=== PATIENT | female | born 1975 | race Caucasian/White ===

== ENCOUNTER 2016-12-01 05:47 | Inpatient (IN) | payer OTHER ==
[~2016-12-01] VITALS: Ht 170.2 cm; Wt 105.3 kg
[2016-12-01] VITALS (9 sets, daily range): BP systolic 119–133; BP diastolic 66–91
[~2016-12-01 05:47] MED LIST: CEPH500 PO; CeFAZolin 1 GM/DEXTROSE 50 ML IV ONE; HYDR2 PO; LORazepam 2 MG/ML VIAL IVP PRN; PROM25 PO; RIVA15T PO; SODIUM CHLORIDE 0.9% 1,000 ML IV ONE; THYR32.4 PO
[2016-12-01 07:14] LABS: ANION GAP 8 mmol/L (8-16); CALCIUM, TOTAL 7.5 mg/dL (8.8-10.5); CARBON DIOXIDE 25 mmol/L (22-29); CHLORIDE 114 mmol/L (98-107); CREATININE 0.53 mg/dL (0.60-1.30); GLOMERULAR FILTR. RATE CALC > 60 mL/min (>60); POTASSIUM 3.9 mmol/L (3.5-5.1); SODIUM SERUM 147 mmol/L (136-145); UREA NITROGEN, BLOOD 10 mg/dL (7-18)
[2016-12-01 07:16] LABS: INR 1.3 (0.9-1.1); PROTHROMBIN TIME 13.7 SEC (9.4-11.6)
[2016-12-01 07:19] LABS: ALANINE AMINOTRANSFERASE 30 U/L (12-78); ALBUMIN 1.9 g/dL (3.4-5.0); ASPARTATE AMINOTRANSFERASE 26 U/L (15-37); BILIRUBIN,TOTAL 0.8 mg/dL (0.1-1.0); TOTAL PROTEIN, SERUM 5.1 g/dL (6.4-8.2)
[2016-12-01 07:20] LABS: HEMATOCRIT 28.4 % (36-46); HEMOGLOBIN 9.4 g/dL (12.0-16.0); MEAN CORPUSCULAR HGB CONC 33.1 G/dL (31.0-37.0); MEAN CORPUSCULAR VOLUME 88 fL (80-100); PLATELET COUNT (AUTO) 436 K/uL (150-450); RED BLOOD CELL COUNT(AUTO) 3.24 MIL/uL (4.00-5.20); RED CELL DISTRIBUTION WIDTH 15.8 % (11.5-14.5); WHITE BLOOD COUNT (AUTO) 11.1 K/uL (4.5-11.0)
[2016-12-01] MEDS ORDERED: LORazepam 2 MG/ML VIAL ONE ×2 (07:26→09:58)
[2016-12-01 07:42] LABS: BASOPHILS % (MANUAL) 1 % (0-2); LYMPHOCYTES % (MANUAL) 11 % (22-44); TOTAL CELLS COUNTED 100
[2016-12-01 07:43] LABS: RBC MORPHOLOGY COMMENT ABNORMAL R
[2016-12-01] MEDS ORDERED: MAGNESIUM SULFATE 2 GM, MVI, ADULT NO.1 WITH VIT K 10 ML, THIAMINE HCL 100 MG, FOLIC AC... IV ONE ×5 (09:15)
[2016-12-01] MEDS ORDERED: ONDANSETRON HCL 4 MG/2 ML VIAL IVP PRN (09:30)
[2016-12-01] MEDS ORDERED: OxyCODONE HCL/ACETAMINOPHEN 5-325 MG TABLET PO PRN ×2 (09:30)
[2016-12-01] MEDS ORDERED: HYDROmorphone 2 MG/ML SYRINGE IVP PRN (09:30)
[2016-12-01] MEDS ORDERED: ZOLPIDEM TARTRATE 5 MG TABLET PO PRN ×2 (09:30→15:15)
[2016-12-01] MEDS ORDERED: 0.9% SODIUM CHLORIDE 10 ML SYRINGE IVP PRN (09:30)
[2016-12-01] MEDS: LORazepam 2 MG/ML VIAL IVP PRN ×2 (10:03→11:20)
[2016-12-01] MEDS ORDERED: HEPARIN SODIUM IV ONE ×2 (10:15→10:45)
[2016-12-01] MEDS ORDERED: SODIUM CHLORIDE 0.9% IV ONE ×2 (10:15→10:45)
[2016-12-01] MEDS ORDERED: KETAMINE HCL 50 MG/ML 10 ML VIAL ONE (11:07)
[2016-12-01] MEDS ORDERED: MIDAZOLAM HCL 2 MG/2 ML VIAL IVP ONE (12:00)
[2016-12-01] MEDS ORDERED: KETAMINE HCL 50 MG/ML 10 ML VIAL IVP ONE (12:00)
[2016-12-01] MEDS ORDERED: FentaNYL CITRATE-PF 100 MCG/2 ML VIAL IVP ONE (12:00)
[2016-12-01] MEDS ORDERED: RINGERS SOLUTION,LACTATED 500 ML IV ONE (12:20)
[2016-12-01] MEDS ORDERED: LIDOCAINE HCL/PF 1% 30 ML VIAL ONE ×2 (12:28→12:49)
[2016-12-01] MEDS ORDERED: IODIXANOL 320 MG/ML 100 ML VIAL ONE ×2 (12:29→13:19)
[2016-12-01] MEDS ORDERED: HEPARIN SODIUM 1000 UNITS/NS 0 ML ONE (12:29)
[2016-12-01] MEDS ORDERED: ALTEPLASE 2 MG/VIAL IVCATH ONE (12:36)
[2016-12-01] MEDS ORDERED: ALTEPLASE 2 MG/VIAL IVCATH PRN (12:45)
[2016-12-01] MEDS ORDERED: HEPARIN SODIUM 1000 UNITS/NS 500 ML ONE (12:47)
[2016-12-01] MEDS ORDERED: ALTEPLASE 8 MG in SODIUM CHLORIDE 0.9% 250 ML IV SCH ×3 (13:00→16:54)
[2016-12-01] MEDS ORDERED: HEPARIN SODIUM 25000 UNITS/D5W 250 ML IV ONE ×2 (13:27→13:56)
[2016-12-01] MEDS ORDERED: RINGERS SOLUTION,LACTATED 1,000 ML IV ONE (13:31)
[2016-12-01] MEDS: HEPARIN SODIUM 25000 UNITS/D5W 250 ML IV SCH (13:40)
[2016-12-01] MEDS ORDERED: ALTEPLASE IV SCH (14:15)
[2016-12-01] MEDS ORDERED: SODIUM CHLORIDE 0.9% IV SCH ×2 (14:15→16:00)
[2016-12-01] MEDS ORDERED: MAGNESIUM HYDROXIDE SUSPENSION 30 ML UDCUP PO PRN (15:15)
[2016-12-01] MEDS ORDERED: IPRATROPIUM BROMIDE HFA 17 MCG/PUFF 12.9 GM INHALER IH PRN (15:15)
[2016-12-01] MEDS ORDERED: LEVALBUTEROL HCL 0.63 MG/3 ML NEB SOLUTION NEB PRN (15:15)
[2016-12-01] MEDS ORDERED: ACETAMINOPHEN 325 MG TABLET PO PRN (15:15)
[2016-12-01] MEDS ORDERED: HEPARIN SODIUM 25000 UNITS/D5W 250 ML IV SCH (15:45)
[2016-12-01] MEDS ORDERED: 0.9% SODIUM CHLORIDE 10 ML SYRINGE IVP SCH ×2 (16:00→20:00)
[2016-12-01] MEDS ORDERED: HEPARIN SODIUM,PORCINE 5,000 UNITS/ML VIAL SQ SCH (16:00)
[2016-12-01] MEDS ORDERED: HEPARIN SODIUM IV SCH (16:00)
[2016-12-01] MEDS: MORPHINE SULFATE 2 MG/ML SYRINGE IVP PRN ×2 (16:22→22:40)
[2016-12-01] MEDS: SODIUM CHLORIDE 0.9% IV SCH ×2 (17:07→21:45)
[2016-12-01] MEDS: HEPARIN SODIUM IV SCH (17:07)
[2016-12-01] MEDS: MAGNESIUM SULFATE 2 GM, MVI, ADULT NO.1 WITH VIT K 10 ML, THIAMINE HCL 100 MG, FOLIC AC... IV SCH ×10 (18:45→23:39)
[2016-12-01] MEDS: ALTEPLASE 8 MG in SODIUM CHLORIDE 0.9% 250 ML IV SCH (18:54)
[2016-12-01] MEDS: DOCUSATE SODIUM 100 MG CAPSULE PO SCH (20:13)
[2016-12-01] MEDS ORDERED: DOCUSATE SODIUM 100 MG CAPSULE PO SCH (21:00)
[2016-12-01] MEDS: ALTEPLASE IV SCH (21:45)
[2016-12-02] VITALS (15 sets, daily range): BP systolic 111–139; BP diastolic 60–88
[2016-12-02] MEDS: ALTEPLASE 8 MG in SODIUM CHLORIDE 0.9% 250 ML IV SCH ×4 (00:47→20:54)
[2016-12-02] MEDS: MORPHINE SULFATE 2 MG/ML SYRINGE IVP PRN ×4 (02:55→19:03)
[2016-12-02] MEDS: MAGNESIUM SULFATE 2 GM, MVI, ADULT NO.1 WITH VIT K 10 ML, THIAMINE HCL 100 MG, FOLIC AC... IV SCH ×10 (04:27→10:03)
[2016-12-02 06:02] LABS: BASOPHILS % (AUTO) 0.4 % (0.0-2.0); EOSINOPHILS % (AUTO) 0.1 % (1.0-6.0); HEMATOCRIT 24.2 % (36-46); HEMOGLOBIN 7.6 g/dL (12.0-16.0); LYMPHOCYTES # (AUTO) 0.9 K/uL (1.0-4.8); LYMPHOCYTES % (AUTO) 9.9 % (22.0-44.0); MEAN CORPUSCULAR HEMOGLOBIN 27.9 pg (26.0-34.0); MEAN CORPUSCULAR HGB CONC 31.4 G/dL (31.0-37.0); MEAN CORPUSCULAR VOLUME 89 fL (80-100); MONOCYTES # (AUTO) 0.6 K/uL (0.1-1.0); MONOCYTES % (AUTO) 6.5 % (2.0-9.0); NEUTROPHILS # (AUTO) 7.6 K/uL (1.8-7.7); NEUTROPHILS % (AUTO) 83.1 % (40.0-70.0); PLATELET COUNT (AUTO) 308 K/uL (150-450); RED BLOOD CELL COUNT(AUTO) 2.72 MIL/uL (4.00-5.20); RED CELL DISTRIBUTION WIDTH 15.7 % (11.5-14.5); WHITE BLOOD COUNT (AUTO) 9.2 K/uL (4.5-11.0)
[2016-12-02] MEDS: SODIUM CHLORIDE 0.9% IV SCH ×3 (06:07→16:55)
[2016-12-02] MEDS: ALTEPLASE IV SCH ×2 (06:07→14:36)
[2016-12-02 06:25] LABS: ANION GAP 5 mmol/L (8-16); CALCIUM, TOTAL 7.1 mg/dL (8.8-10.5); CARBON DIOXIDE 27 mmol/L (22-29); CHLORIDE 119 mmol/L (98-107); CREATININE 0.53 mg/dL (0.60-1.30); GLOMERULAR FILTR. RATE CALC > 60 mL/min (>60); SODIUM SERUM 151 mmol/L (136-145); UREA NITROGEN, BLOOD 7 mg/dL (7-18)
[2016-12-02 08:42] LABS: RBC MORPHOLOGY COMMENT ABNORMAL RBC MORPH
[2016-12-02] MEDS: DOCUSATE SODIUM 100 MG CAPSULE PO SCH ×2 (08:49→20:53)
[2016-12-02] MEDS: PANTOPRAZOLE SODIUM 40 MG DR TABLET PO SCH (08:49)
[2016-12-02] MEDS: OxyCODONE HCL/ACETAMINOPHEN 5-325 MG TABLET PO PRN ×2 (10:45→20:52)
[2016-12-02] MEDS: DEXTROSE 5%-0.45% SODIUM CHL 1,000 ML IV SCH (14:30)
[2016-12-02] MEDS: HEPARIN SODIUM 25000 UNITS/D5W 250 ML IV SCH (14:31)
[2016-12-02] MEDS ORDERED: LIDOCAINE HCL/PF 1% 30 ML VIAL ONE ×2 (15:40→16:02)
[2016-12-02] MEDS ORDERED: IOHEXOL 300 MG/ML 100 ML VIAL ONE ×2 (15:40→17:07)
[2016-12-02] MEDS ORDERED: ALTEPLASE 2 MG/VIAL IVCATH STA (15:49)
[2016-12-02] MEDS ORDERED: SODIUM CHLORIDE 0.9% IV SCH (16:55)
[2016-12-02] MEDS ORDERED: HEPARIN SODIUM IV SCH (16:55)
[2016-12-02] MEDS: HEPARIN SODIUM IV SCH (16:55)
[2016-12-02] MEDS ORDERED: MIDAZOLAM HCL 2 MG/2 ML VIAL ONE (17:02)
[2016-12-02] MEDS ORDERED: FentaNYL CITRATE-PF 100 MCG/2 ML VIAL ONE (17:13)
[2016-12-02] MEDS ORDERED: HEPARIN SODIUM 1000 UNITS/NS 500 ML ONE (17:57)
[2016-12-02] MEDS ORDERED: FentaNYL CITRATE-PF 100 MCG/2 ML VIAL IVP ONE (18:00)
[2016-12-02] MEDS ORDERED: MIDAZOLAM HCL 2 MG/2 ML VIAL IVP ONE (18:00)
[2016-12-03] VITALS (12 sets, daily range): BP systolic 89–124; BP diastolic 61–82
[2016-12-03] MEDS: ALTEPLASE 8 MG in SODIUM CHLORIDE 0.9% 250 ML IV SCH ×2 (01:25→05:06)
[2016-12-03] MEDS: DEXTROSE 5%-0.45% SODIUM CHL 1,000 ML IV SCH (01:27)
[2016-12-03 05:44] LABS: HEMATOCRIT 23.3 % (36-46); HEMOGLOBIN 7.2 g/dL (12.0-16.0); MEAN CORPUSCULAR VOLUME 90 fL (80-100); PLATELET COUNT (AUTO) 217 K/uL (150-450); RED BLOOD CELL COUNT(AUTO) 2.58 MIL/uL (4.00-5.20); RED CELL DISTRIBUTION WIDTH 16.2 % (11.5-14.5); WHITE BLOOD COUNT (AUTO) 9.5 K/uL (4.5-11.0)
[2016-12-03 05:48] LABS: ANION GAP 7 mmol/L (8-16); CALCIUM, TOTAL 6.9 mg/dL (8.8-10.5); CARBON DIOXIDE 27 mmol/L (22-29); CHLORIDE 118 mmol/L (98-107); CREATININE 0.64 mg/dL (0.60-1.30); GLOMERULAR FILTR. RATE CALC > 60 mL/min (>60); POTASSIUM 4.8 mmol/L (3.5-5.1); SODIUM SERUM 152 mmol/L (136-145); UREA NITROGEN, BLOOD 10 mg/dL (7-18)
[2016-12-03] MEDS ORDERED: IOHEXOL 300 MG/ML 100 ML VIAL ONE ×2 (06:44→08:41)
[2016-12-03] MEDS ORDERED: LIDOCAINE HCL/PF 1% 30 ML VIAL ONE (06:44)
[2016-12-03] MEDS ORDERED: HEPARIN SODIUM 1000 UNITS/NS 500 ML ONE ×2 (06:44→08:40)
[2016-12-03] MEDS: MORPHINE SULFATE 2 MG/ML SYRINGE IVP PRN (07:31)
[2016-12-03 08:28] LABS: BAND NEUTROPHILS % (MANUAL) 1 % (1-5); LYMPHOCYTES % (MANUAL) 15 % (22-44); TOTAL CELLS COUNTED 100
[2016-12-03] MEDS ORDERED: LORazepam 2 MG/ML VIAL IVP ONE (08:45)
[2016-12-03] MEDS ORDERED: ALTEPLASE 2 MG/VIAL IVCATH ONE ×2 (09:00→10:00)
[2016-12-03] MEDS: PANTOPRAZOLE SODIUM 40 MG DR TABLET PO SCH (09:00)
[2016-12-03] MEDS: DOCUSATE SODIUM 100 MG CAPSULE PO SCH ×2 (09:00→20:37)
[2016-12-03] MEDS ORDERED: HEPARIN SODIUM,PORCINE 1,000 UNITS/ML 10 ML VIAL ONE (09:24)
[2016-12-03] MEDS ORDERED: ADENOSINE 3 MG/ML 2 ML VIAL IVP ONE (09:30)
[2016-12-03] MEDS ORDERED: IOVERSOL 350 MG/ML 150 ML VIAL ONE (11:04)
[2016-12-03] MEDS: APIXABAN 5 MG TABLET PO SCH ×2 (11:50→20:37)
[2016-12-03] MEDS: OxyCODONE HCL/ACETAMINOPHEN 5-325 MG TABLET PO PRN ×2 (11:50→20:37)
[2016-12-03] MEDS: RINGERS SOLUTION,LACTATED 1,000 ML IV SCH ×2 (11:51→16:03)
[2016-12-03] MEDS: SODIUM POLYSTYRENE SULFONATE 15 GM/60 ML SUSPENSION BOTTLE PO SCH ×2 (12:25→20:38)
[2016-12-03] MEDS: LORazepam 1 MG TABLET PO SCH ×3 (12:25→20:37)
[2016-12-03] MEDS ORDERED: SODIUM CHLORIDE 0.9% 250 ML IV ONE (15:39)
[2016-12-03 19:35] LABS: ANION GAP 6 mmol/L (8-16); CALCIUM, TOTAL 7.1 mg/dL (8.8-10.5); CARBON DIOXIDE 24 mmol/L (22-29); CHLORIDE 116 mmol/L (98-107); CREATININE 0.65 mg/dL (0.60-1.30); GLOMERULAR FILTR. RATE CALC > 60 mL/min (>60); POTASSIUM 4.2 mmol/L (3.5-5.1); SODIUM SERUM 146 mmol/L (136-145); UREA NITROGEN, BLOOD 9 mg/dL (7-18)
[2016-12-03] MEDS: SODIUM CHLORIDE 0.9% 1,000 ML IV SCH (20:38)
[2016-12-04] VITALS (12 sets, daily range): BP systolic 95–139; BP diastolic 56–79
[2016-12-04 05:11] LABS: ANION GAP 6 mmol/L (8-16); CALCIUM, TOTAL 6.9 mg/dL (8.8-10.5); CARBON DIOXIDE 25 mmol/L (22-29); CHLORIDE 115 mmol/L (98-107); CREATININE 0.67 mg/dL (0.60-1.30); GLOMERULAR FILTR. RATE CALC > 60 mL/min (>60); POTASSIUM 4.4 mmol/L (3.5-5.1); SODIUM SERUM 146 mmol/L (136-145); UREA NITROGEN, BLOOD 10 mg/dL (7-18)
[2016-12-04] MEDS: OxyCODONE HCL/ACETAMINOPHEN 5-325 MG TABLET PO PRN ×3 (05:16→20:30)
[2016-12-04] MEDS: SODIUM CHLORIDE 0.9% 1,000 ML IV SCH ×2 (05:16→15:40)
[2016-12-04 05:36] LABS: BASOPHILS % (AUTO) 0.3 % (0.0-2.0); EOSINOPHILS % (AUTO) 1.6 % (1.0-6.0); HEMOGLOBIN 8.5 g/dL (12.0-16.0); LYMPHOCYTES # (AUTO) 1.5 K/uL (1.0-4.8); LYMPHOCYTES % (AUTO) 13.2 % (22.0-44.0); MEAN CORPUSCULAR HEMOGLOBIN 29.7 pg (26.0-34.0); MEAN CORPUSCULAR HGB CONC 32.8 G/dL (31.0-37.0); MEAN CORPUSCULAR VOLUME 90 fL (80-100); MONOCYTES # (AUTO) 0.4 K/uL (0.1-1.0); MONOCYTES % (AUTO) 3.4 % (2.0-9.0); NEUTROPHILS # (AUTO) 9.5 K/uL (1.8-7.7); NEUTROPHILS % (AUTO) 81.5 % (40.0-70.0); RED BLOOD CELL COUNT(AUTO) 2.87 MIL/uL (4.00-5.20); RED CELL DISTRIBUTION WIDTH 16.4 % (11.5-14.5); WHITE BLOOD COUNT (AUTO) 11.7 K/uL (4.5-11.0)
[2016-12-04 07:18] LABS: PLATELET COUNT (AUTO) 168 K/uL (150-450)
[2016-12-04] MEDS: LORazepam 1 MG TABLET PO SCH ×4 (09:12→20:21)
[2016-12-04] MEDS: APIXABAN 5 MG TABLET PO SCH ×2 (09:12→20:21)
[2016-12-04] MEDS: PANTOPRAZOLE SODIUM 40 MG DR TABLET PO SCH (09:12)
[2016-12-04] MEDS: DOCUSATE SODIUM 100 MG CAPSULE PO SCH ×2 (09:13→20:21)
[2016-12-04] MEDS: SODIUM POLYSTYRENE SULFONATE 15 GM/60 ML SUSPENSION BOTTLE PO SCH (10:46)
[2016-12-04] MEDS ORDERED: LACTULOSE 20 GM/30 ML SOLUTION UDCUP PO PRN (11:30)
[2016-12-04 16:51] LABS: ANION GAP 6 mmol/L (8-16); CALCIUM, TOTAL 6.7 mg/dL (8.8-10.5); CARBON DIOXIDE 24 mmol/L (22-29); CHLORIDE 116 mmol/L (98-107); CREATININE 0.64 mg/dL (0.60-1.30); GLOMERULAR FILTR. RATE CALC > 60 mL/min (>60); POTASSIUM 4.3 mmol/L (3.5-5.1); SODIUM SERUM 146 mmol/L (136-145); UREA NITROGEN, BLOOD 12 mg/dL (7-18)
[2016-12-04] MEDS: CefTRIAXone 1 GM/DEXTROSE 50 ML IV SCH (16:56)
[2016-12-05] VITALS (13 sets, daily range): BP systolic 96–141; BP diastolic 63–97
[2016-12-05] MEDS: BISACODYL 10 MG RECTAL RECTAL SUPPOSITORY PR PRN (01:46)
[2016-12-05] MEDS: SODIUM CHLORIDE 0.9% 1,000 ML IV SCH ×2 (01:47→11:15)
[2016-12-05] MEDS: PANTOPRAZOLE SODIUM 40 MG DR TABLET PO SCH (09:15)
[2016-12-05] MEDS: DOCUSATE SODIUM 100 MG CAPSULE PO SCH ×2 (09:15→20:55)
[2016-12-05] MEDS: APIXABAN 5 MG TABLET PO SCH (09:15)
[2016-12-05] MEDS: LORazepam 1 MG TABLET PO SCH ×4 (09:15→20:55)
[2016-12-05] MEDS: OxyCODONE HCL/ACETAMINOPHEN 5-325 MG TABLET PO PRN ×2 (11:38→21:13)
[2016-12-05 11:55] LABS: HEMATOCRIT 22.4 % (36-46); HEMOGLOBIN 7.3 g/dL (12.0-16.0); MEAN CORPUSCULAR HEMOGLOBIN 29.4 pg (26.0-34.0); MEAN CORPUSCULAR HGB CONC 32.5 G/dL (31.0-37.0); MEAN CORPUSCULAR VOLUME 91 fL (80-100); PLATELET COUNT (AUTO) 214 K/uL (150-450); RED BLOOD CELL COUNT(AUTO) 2.47 MIL/uL (4.00-5.20); RED CELL DISTRIBUTION WIDTH 17.4 % (11.5-14.5)
[2016-12-05 12:35] LABS: ANION GAP 6 mmol/L (8-16); CALCIUM, TOTAL 7.2 mg/dL (8.8-10.5); CARBON DIOXIDE 24 mmol/L (22-29); CHLORIDE 114 mmol/L (98-107); CREATININE 0.67 mg/dL (0.60-1.30); GLOMERULAR FILTR. RATE CALC > 60 mL/min (>60); POTASSIUM 4.4 mmol/L (3.5-5.1); SODIUM SERUM 144 mmol/L (136-145); UREA NITROGEN, BLOOD 12 mg/dL (7-18)
[2016-12-05 12:40] LABS: BILIRUBIN,TOTAL 0.7 mg/dL (0.1-1.0)
[2016-12-05 12:41] LABS: ALANINE AMINOTRANSFERASE 14 U/L (12-78); ALBUMIN 1.6 g/dL (3.4-5.0); ASPARTATE AMINOTRANSFERASE 23 U/L (15-37); BILIRUBIN,TOTAL 0.7 mg/dL (0.1-1.0); TOTAL PROTEIN, SERUM 4.4 g/dL (6.4-8.2)
[2016-12-05 12:43] LABS: BILIRUBIN,DIRECT 0.2 mg/dL (0.00-0.20)
[2016-12-05 12:50] LABS: BAND NEUTROPHILS % (MANUAL) 5 % (1-5); CORRECTED WHITE BLOOD COUNT 15.6 K/uL (4.5-11.0); LYMPHOCYTES % (MANUAL) 16 % (22-44); METAMYELOCYTES % 2 % (0-0); TOTAL CELLS COUNTED 100; WHITE BLOOD COUNT (AUTO) 15.6 K/uL (4.5-11.0)
[2016-12-05 12:51] LABS: RBC MORPHOLOGY COMMENT ABNORMAL RBC MORPH
[2016-12-05] MEDS: CefTRIAXone 1 GM/DEXTROSE 50 ML IV SCH (15:40)
[2016-12-05] MEDS ORDERED: MINERAL OIL 30 ML UDCUP PO SCH (15:45)
[2016-12-05] MEDS ORDERED: MAGNESIUM SULFATE 2 GM, MVI, ADULT NO.1 WITH VIT K 10 ML, THIAMINE HCL 100 MG, FOLIC AC... IV ONE ×5 (15:45)
[2016-12-05] MEDS ORDERED: SODIUM CHLORIDE 0.9% 500 ML IV ONE (16:52)
[2016-12-05] MEDS ORDERED: HEPARIN SODIUM 25000 UNITS/D5W 250 ML IV PRN (17:43)
[2016-12-05] MEDS ORDERED: HEPARIN SODIUM,PORCINE 5,000 UNITS/ML VIAL IVP PRN ×4 (17:45→21:00)
[2016-12-05 18:49] LABS: HEMATOCRIT 26.2 % (36-46); HEMOGLOBIN 8.5 g/dL (12.0-16.0); MEAN CORPUSCULAR HEMOGLOBIN 29.6 pg (26.0-34.0); MEAN CORPUSCULAR HGB CONC 32.3 G/dL (31.0-37.0); MEAN CORPUSCULAR VOLUME 92 fL (80-100); RED BLOOD CELL COUNT(AUTO) 2.86 MIL/uL (4.00-5.20); RED CELL DISTRIBUTION WIDTH 17.1 % (11.5-14.5)
[2016-12-05 19:09] LABS: INR 1.3 (0.9-1.1)
[2016-12-05] MEDS: HEPARIN SODIUM 25000 UNITS/D5W 250 ML IV PRN (21:00)
[2016-12-05] MEDS ORDERED: APIXABAN 5 MG TABLET PO SCH (21:00)
[2016-12-05 21:22] LABS: PLATELET COUNT (AUTO) 243 K/uL (150-450)
[2016-12-05 21:25] LABS: BAND NEUTROPHILS % (MANUAL) 5 % (1-5); CORRECTED WHITE BLOOD COUNT 17.7 K/uL (4.5-11.0); LYMPHOCYTES % (MANUAL) 17 % (22-44); METAMYELOCYTES % 7 % (0-0); MYELOCYTES % 3 % (0-0); TOTAL CELLS COUNTED 100; WHITE BLOOD COUNT (AUTO) 17.7 K/uL (4.5-11.0)
[2016-12-05 21:26] LABS: RBC MORPHOLOGY COMMENT ABNORMAL R
[2016-12-06] VITALS (8 sets, daily range): BP systolic 96–156; BP diastolic 64–79
[2016-12-06 05:47] LABS: ANION GAP 4 mmol/L (8-16); CALCIUM, TOTAL 7.3 mg/dL (8.8-10.5); CARBON DIOXIDE 26 mmol/L (22-29); CHLORIDE 114 mmol/L (98-107); CREATININE 0.71 mg/dL (0.60-1.30); GLOMERULAR FILTR. RATE CALC > 60 mL/min (>60); POTASSIUM 4.4 mmol/L (3.5-5.1); SODIUM SERUM 144 mmol/L (136-145); UREA NITROGEN, BLOOD 13 mg/dL (7-18)
[2016-12-06 05:55] LABS: HEMATOCRIT 25.9 % (36-46); HEMOGLOBIN 8.5 g/dL (12.0-16.0); MEAN CORPUSCULAR HEMOGLOBIN 30.1 pg (26.0-34.0); MEAN CORPUSCULAR HGB CONC 32.7 G/dL (31.0-37.0); MEAN CORPUSCULAR VOLUME 92 fL (80-100); PLATELET COUNT (AUTO) 235 K/uL (150-450); RED BLOOD CELL COUNT(AUTO) 2.82 MIL/uL (4.00-5.20); RED CELL DISTRIBUTION WIDTH 16.2 % (11.5-14.5)
[2016-12-06 07:42] LABS: HEPATITIS Bs ANTIGEN SCREEN P Negative (Negative); HEPATITIS C AB SCREEN <0.1 s/co ratio (0.0-0.9)
[2016-12-06 07:59] LABS: CORRECTED WHITE BLOOD COUNT 21.4 K/uL (4.5-11.0); LYMPHOCYTES % (MANUAL) 11 % (22-44); METAMYELOCYTES % 11 % (0-0); MYELOCYTES % 12 % (0-0); PROMYELOCYTES % 2 (0-0); TOTAL CELLS COUNTED 100; WHITE BLOOD COUNT (AUTO) 21.4 K/uL (4.5-11.0)
[2016-12-06 08:01] LABS: RBC MORPHOLOGY COMMENT ABNORMAL R
[2016-12-06] MEDS: LORazepam 1 MG TABLET PO SCH ×4 (08:57→20:08)
[2016-12-06] MEDS: PANTOPRAZOLE SODIUM 40 MG DR TABLET PO SCH (08:58)
[2016-12-06] MEDS: DOCUSATE SODIUM 100 MG CAPSULE PO SCH ×2 (08:58→20:08)
[2016-12-06] MEDS: OxyCODONE HCL/ACETAMINOPHEN 5-325 MG TABLET PO PRN ×2 (10:30→18:38)
[2016-12-06] MEDS: HEPARIN SODIUM 25000 UNITS/D5W 250 ML IV PRN (10:34)
[2016-12-06] MEDS: CefTRIAXone 1 GM/DEXTROSE 50 ML IV SCH (16:00)
[2016-12-06] MEDS ORDERED: SODIUM CHLORIDE 0.9% 250 ML IV ONE (17:03)
[2016-12-07] VITALS: BP 104/65
[2016-12-07 04:00] VITALS: BP 110/67
[2016-12-07 04:47] LABS: HEMATOCRIT 26.9 % (36-46); HEMOGLOBIN 8.8 g/dL (12.0-16.0); MEAN CORPUSCULAR HEMOGLOBIN 30.1 pg (26.0-34.0); MEAN CORPUSCULAR HGB CONC 32.8 G/dL (31.0-37.0); MEAN CORPUSCULAR VOLUME 92 fL (80-100); PLATELET COUNT (AUTO) 248 K/uL (150-450); RED BLOOD CELL COUNT(AUTO) 2.92 MIL/uL (4.00-5.20); RED CELL DISTRIBUTION WIDTH 17.9 % (11.5-14.5)
[2016-12-07 04:49] LABS: ANION GAP 7 mmol/L (8-16); CALCIUM, TOTAL 7.4 mg/dL (8.8-10.5); CARBON DIOXIDE 24 mmol/L (22-29); CHLORIDE 110 mmol/L (98-107); CREATININE 0.75 mg/dL (0.60-1.30); GLOMERULAR FILTR. RATE CALC > 60 mL/min (>60); POTASSIUM 4.8 mmol/L (3.5-5.1); SODIUM SERUM 141 mmol/L (136-145); UREA NITROGEN, BLOOD 14 mg/dL (7-18)
[2016-12-07 07:50] LABS: BAND NEUTROPHILS % (MANUAL) 5 % (1-5); CORRECTED WHITE BLOOD COUNT 27.6 K/uL (4.5-11.0); LYMPHOCYTES % (MANUAL) 10 % (22-44); METAMYELOCYTES % 9 % (0-0); MYELOCYTES % 6 % (0-0); RBC MORPHOLOGY COMMENT ABNORMAL RBC MORPH; TOTAL CELLS COUNTED 100; WHITE BLOOD COUNT (AUTO) 27.6 K/uL (4.5-11.0)
[2016-12-07 08:00] VITALS: BP 96/54
[2016-12-07] MEDS: LORazepam 1 MG TABLET PO SCH ×4 (08:05→21:55)
[2016-12-07] MEDS: OxyCODONE HCL/ACETAMINOPHEN 5-325 MG TABLET PO PRN (08:10)
[2016-12-07] MEDS: PANTOPRAZOLE SODIUM 40 MG DR TABLET PO SCH (09:00)
[2016-12-07] MEDS: DOCUSATE SODIUM 100 MG CAPSULE PO SCH ×2 (09:00→21:55)
[2016-12-07 12:00] VITALS: BP 90/61
[2016-12-07] MEDS ORDERED: MIDAZOLAM HCL 2 MG/2 ML VIAL ONE (12:24)
[2016-12-07] MEDS ORDERED: LIDOCAINE HCL/PF 1% 30 ML VIAL ONE (12:30)
[2016-12-07] MEDS ORDERED: APIXABAN 5 MG TABLET PO ONE (14:30)
[2016-12-07] MEDS ORDERED: ALTEPLASE 2 MG/VIAL IVCATH ONE (14:30)
[2016-12-07] MEDS: MORPHINE SULFATE 2 MG/ML SYRINGE IVP PRN (14:52)
[2016-12-07 16:32] VITALS: BP 101/51
[2016-12-07] MEDS: CefTRIAXone 1 GM/DEXTROSE 50 ML IV SCH (17:08)
[2016-12-07 20:00] VITALS: BP 105/52
[2016-12-07] MEDS ORDERED: SODIUM CHLORIDE 0.9% 250 ML IV ONE (21:53)
[2016-12-08] VITALS (8 sets, daily range): BP systolic 72–113; BP diastolic 46–77
[2016-12-08 05:12] LABS: ANION GAP 4 mmol/L (8-16); CALCIUM, TOTAL 7.4 mg/dL (8.8-10.5); CARBON DIOXIDE 24 mmol/L (22-29); CHLORIDE 113 mmol/L (98-107); GLOMERULAR FILTR. RATE CALC > 60 mL/min (>60); POTASSIUM 5.1 mmol/L (3.5-5.1); SODIUM SERUM 141 mmol/L (136-145); UREA NITROGEN, BLOOD 15 mg/dL (7-18)
[2016-12-08 05:15] LABS: HEMATOCRIT 24.8 % (36-46); HEMOGLOBIN 7.9 g/dL (12.0-16.0); MEAN CORPUSCULAR HEMOGLOBIN 30.6 pg (26.0-34.0); MEAN CORPUSCULAR HGB CONC 31.9 G/dL (31.0-37.0); MEAN CORPUSCULAR VOLUME 96 fL (80-100); PLATELET COUNT (AUTO) 226 K/uL (150-450); RED BLOOD CELL COUNT(AUTO) 2.59 MIL/uL (4.00-5.20); RED CELL DISTRIBUTION WIDTH 18.8 % (11.5-14.5)
[2016-12-08] MEDS: PANTOPRAZOLE SODIUM 40 MG DR TABLET PO SCH (08:57)
[2016-12-08] MEDS: DOCUSATE SODIUM 100 MG CAPSULE PO SCH ×2 (08:58→20:17)
[2016-12-08] MEDS: LORazepam 1 MG TABLET PO SCH ×4 (08:58→20:16)
[2016-12-08] MEDS: OxyCODONE HCL/ACETAMINOPHEN 5-325 MG TABLET PO PRN ×3 (09:00→20:17)
[2016-12-08] MEDS ORDERED: APIXABAN 5 MG TABLET PO SCH (09:00)
[2016-12-08] MEDS: ONDANSETRON HCL 4 MG/2 ML VIAL IVP PRN (09:26)
[2016-12-08 12:42] LABS: APPEARANCE,URINE CLEAR (CLEAR); GLUCOSE, URINE (UA) NEGATIVE (NEGATIVE); KETONES,URINE NEGATIVE (NEGATIVE); LEUKOCYTE ESTERASE ,URINE NEGATIVE (NEGATIVE); OCCULT BLOOD,URINE NEGATIVE (NEGATIVE); PROTEIN,URINE NEGATIVE (NEGATIVE)
[2016-12-08 12:55] LABS: RBC,URINE None Seen /HPF (0-2)
[2016-12-08 12:56] LABS: SQUAMOUS EPITHELIAL CELL,UR Few /LPF (None Seen); WBC,URINE 0-2 /HPF (0-5)
[2016-12-08 14:27] LABS: BAND NEUTROPHILS % (MANUAL) 7 % (1-5); CORRECTED WHITE BLOOD COUNT 19.5 K/uL (4.5-11.0); LYMPHOCYTES % (MANUAL) 8 % (22-44); METAMYELOCYTES % 10 % (0-0); MYELOCYTES % 8 % (0-0); TOTAL CELLS COUNTED 100
[2016-12-08 14:28] LABS: WHITE BLOOD COUNT (AUTO) 19.5 K/uL (4.5-11.0)
[2016-12-08 14:30] LABS: RBC MORPHOLOGY COMMENT DIMORPHIC
[2016-12-08] MEDS: CefTRIAXone 1 GM/DEXTROSE 50 ML IV SCH (18:17)
[2016-12-08] MEDS ORDERED: MIDAZOLAM HCL 2 MG/2 ML VIAL IVP PRN (18:45)
[2016-12-08] MEDS ORDERED: MINERAL OIL 30 ML UDCUP PO ONE (19:00)
[2016-12-08] MEDS ORDERED: APIXABAN 5 MG TABLET PO ONE (20:00)
[2016-12-08] MEDS ORDERED: SODIUM CHLORIDE 0.9% 250 ML IV ONE (21:26)
[2016-12-09] VITALS (18 sets, daily range): BP systolic 90–120; BP diastolic 59–77
[2016-12-09 06:02] LABS: HEMATOCRIT 22.5 % (36-46); HEMOGLOBIN 7.1 g/dL (12.0-16.0); MEAN CORPUSCULAR HEMOGLOBIN 30.4 pg (26.0-34.0); MEAN CORPUSCULAR HGB CONC 31.5 G/dL (31.0-37.0); MEAN CORPUSCULAR VOLUME 97 fL (80-100); PLATELET COUNT (AUTO) 218 K/uL (150-450); RED BLOOD CELL COUNT(AUTO) 2.33 MIL/uL (4.00-5.20); RED CELL DISTRIBUTION WIDTH 21.6 % (11.5-14.5)
[2016-12-09 06:03] LABS: ANION GAP 5 mmol/L (8-16); CALCIUM, TOTAL 7.4 mg/dL (8.8-10.5); CARBON DIOXIDE 24 mmol/L (22-29); CHLORIDE 114 mmol/L (98-107); CREATININE 0.83 mg/dL (0.60-1.30); GLOMERULAR FILTR. RATE CALC > 60 mL/min (>60); POTASSIUM 5.1 mmol/L (3.5-5.1); SODIUM SERUM 143 mmol/L (136-145); UREA NITROGEN, BLOOD 14 mg/dL (7-18)
[2016-12-09] MEDS: OxyCODONE HCL/ACETAMINOPHEN 5-325 MG TABLET PO PRN ×2 (06:25→14:50)
[2016-12-09] MEDS ORDERED: APIXABAN 5 MG TABLET PO SCH (09:00)
[2016-12-09] MEDS: PANTOPRAZOLE SODIUM 40 MG DR TABLET PO SCH (09:19)
[2016-12-09] MEDS: LORazepam 1 MG TABLET PO SCH ×4 (09:19→21:02)
[2016-12-09] MEDS: DOCUSATE SODIUM 100 MG CAPSULE PO SCH ×2 (09:19→21:02)
[2016-12-09] MEDS: PRENATAL VIT#96/FERROUS FUM/FA TABLET PO SCH (09:19)
[2016-12-09 09:58] LABS: BAND NEUTROPHILS % (MANUAL) 10 % (1-5); CORRECTED WHITE BLOOD COUNT 13.9 K/uL (4.5-11.0); LYMPHOCYTES % (MANUAL) 8 % (22-44); METAMYELOCYTES % 7 % (0-0); MYELOCYTES % 5 % (0-0); TOTAL CELLS COUNTED 100
[2016-12-09 09:59] LABS: WHITE BLOOD COUNT (AUTO) 13.9 K/uL (4.5-11.0)
[2016-12-09 10:01] LABS: RBC MORPHOLOGY COMMENT ABNORMAL R
[2016-12-09] MEDS ORDERED: LIDOCAINE HCL/PF 1% 30 ML VIAL ONE (11:00)
[2016-12-09] MEDS ORDERED: HEPARIN SODIUM 1000 UNITS/NS 500 ML ONE (11:00)
[2016-12-09] MEDS ORDERED: IOHEXOL 300 MG/ML 100 ML VIAL ONE (11:03)
[2016-12-09] MEDS ORDERED: IOHEXOL 300 MG/ML 150 ML VIAL ONE (12:29)
[2016-12-09] MEDS ORDERED: FentaNYL CITRATE-PF 100 MCG/2 ML VIAL ONE (13:04)
[2016-12-09] MEDS ORDERED: MIDAZOLAM HCL 2 MG/2 ML VIAL ONE (13:05)
[2016-12-09] MEDS ORDERED: FentaNYL CITRATE-PF 100 MCG/2 ML VIAL IVP ONE (13:10)
[2016-12-09] MEDS ORDERED: MIDAZOLAM HCL 2 MG/2 ML VIAL IVP ONE (13:17)
[2016-12-09] MEDS: MORPHINE SULFATE 2 MG/ML SYRINGE IVP PRN (14:08)
[2016-12-09] MEDS ORDERED: SODIUM CHLORIDE 0.9% 250 ML IV ONE (14:35)
[2016-12-09] MEDS ORDERED: FUROSEMIDE 20 MG/2 ML VIAL IVP ONE ×2 (15:30→21:15)
[2016-12-09] MEDS: CefTRIAXone 1 GM/DEXTROSE 50 ML IV SCH (16:57)
[2016-12-09] MEDS: APIXABAN 5 MG TABLET PO SCH (21:02)
[2016-12-10] VITALS (12 sets, daily range): BP systolic 91–120; BP diastolic 50–76
[2016-12-10] MEDS: MORPHINE SULFATE 2 MG/ML SYRINGE IVP PRN (00:14)
[2016-12-10 05:49] LABS: HEMATOCRIT 26.1 % (36-46); HEMOGLOBIN 8.5 g/dL (12.0-16.0); MEAN CORPUSCULAR HEMOGLOBIN 30.6 pg (26.0-34.0); MEAN CORPUSCULAR HGB CONC 32.6 G/dL (31.0-37.0); MEAN CORPUSCULAR VOLUME 94 fL (80-100); PLATELET COUNT (AUTO) 176 K/uL (150-450); RED BLOOD CELL COUNT(AUTO) 2.79 MIL/uL (4.00-5.20); RED CELL DISTRIBUTION WIDTH 18.8 % (11.5-14.5)
[2016-12-10 06:01] LABS: ANION GAP 6 mmol/L (8-16); CALCIUM, TOTAL 7.2 mg/dL (8.8-10.5); CARBON DIOXIDE 24 mmol/L (22-29); CHLORIDE 112 mmol/L (98-107); CREATININE 0.86 mg/dL (0.60-1.30); GLOMERULAR FILTR. RATE CALC > 60 mL/min (>60); SODIUM SERUM 142 mmol/L (136-145); UREA NITROGEN, BLOOD 14 mg/dL (7-18)
[2016-12-10 07:35] LABS: BAND NEUTROPHILS % (MANUAL) 3 % (1-5); BASOPHILS % (MANUAL) 1 % (0-2); LYMPHOCYTES % (MANUAL) 9 % (22-44); METAMYELOCYTES % 2 % (0-0); MYELOCYTES % 1 % (0-0); TOTAL CELLS COUNTED 100
[2016-12-10] MEDS: PRENATAL VIT#96/FERROUS FUM/FA TABLET PO SCH (07:58)
[2016-12-10] MEDS: APIXABAN 5 MG TABLET PO SCH ×2 (07:58→20:00)
[2016-12-10] MEDS: LORazepam 1 MG TABLET PO SCH ×4 (07:58→20:00)
[2016-12-10] MEDS: DOCUSATE SODIUM 100 MG CAPSULE PO SCH ×2 (07:58→20:00)
[2016-12-10] MEDS: PANTOPRAZOLE SODIUM 40 MG DR TABLET PO SCH (07:59)
[2016-12-10] MEDS: OxyCODONE HCL/ACETAMINOPHEN 5-325 MG TABLET PO PRN ×5 (07:59→23:58)
[2016-12-10] MEDS: CefTRIAXone 1 GM/DEXTROSE 50 ML IV SCH (15:59)
[2016-12-11] VITALS (15 sets, daily range): BP systolic 89–111; BP diastolic 47–62
[2016-12-11] MEDS: OxyCODONE HCL/ACETAMINOPHEN 5-325 MG TABLET PO PRN ×5 (03:57→20:05)
[2016-12-11 04:43] LABS: HEMATOCRIT 23.6 % (36-46); HEMOGLOBIN 7.6 g/dL (12.0-16.0); MEAN CORPUSCULAR HEMOGLOBIN 30.4 pg (26.0-34.0); MEAN CORPUSCULAR HGB CONC 32.3 G/dL (31.0-37.0); MEAN CORPUSCULAR VOLUME 94 fL (80-100); PLATELET COUNT (AUTO) 159 K/uL (150-450); RED CELL DISTRIBUTION WIDTH 21.2 % (11.5-14.5)
[2016-12-11 04:53] LABS: CALCIUM, TOTAL 7.3 mg/dL (8.8-10.5); CREATININE 1.06 mg/dL (0.60-1.30); POTASSIUM 5.4 mmol/L (3.5-5.1)
[2016-12-11 05:31] LABS: BAND NEUTROPHILS % (MANUAL) 11 % (1-5); CORRECTED WHITE BLOOD COUNT 15.1 K/uL (4.5-11.0); LYMPHOCYTES % (MANUAL) 14 % (22-44); METAMYELOCYTES % 2 % (0-0); RBC MORPHOLOGY COMMENT DIMORPHIC RBC; TOTAL CELLS COUNTED 100; WHITE BLOOD COUNT (AUTO) 15.1 K/uL (4.5-11.0)
[2016-12-11] MEDS: PRENATAL VIT#96/FERROUS FUM/FA TABLET PO SCH (07:58)
[2016-12-11] MEDS: LORazepam 1 MG TABLET PO SCH ×4 (07:58→21:00)
[2016-12-11] MEDS: DOCUSATE SODIUM 100 MG CAPSULE PO SCH ×2 (07:58→20:04)
[2016-12-11] MEDS: APIXABAN 5 MG TABLET PO SCH ×2 (07:58→20:04)
[2016-12-11] MEDS: PANTOPRAZOLE SODIUM 40 MG DR TABLET PO SCH (07:58)
[2016-12-11] MEDS: MORPHINE SULFATE 2 MG/ML SYRINGE IVP PRN (09:18)
[2016-12-11] MEDS: CefTRIAXone 1 GM/DEXTROSE 50 ML IV SCH (16:00)
[2016-12-12] VITALS (22 sets, daily range): BP systolic 90–124; BP diastolic 55–73
[2016-12-12] MEDS: OxyCODONE HCL/ACETAMINOPHEN 5-325 MG TABLET PO PRN ×3 (01:31→21:58)
[2016-12-12 04:45] LABS: HEMATOCRIT 22.1 % (36-46); MEAN CORPUSCULAR HEMOGLOBIN 30.1 pg (26.0-34.0); MEAN CORPUSCULAR HGB CONC 31.3 G/dL (31.0-37.0); MEAN CORPUSCULAR VOLUME 96 fL (80-100); PLATELET COUNT (AUTO) 155 K/uL (150-450); RED BLOOD CELL COUNT(AUTO) 2.29 MIL/uL (4.00-5.20); RED CELL DISTRIBUTION WIDTH 20.8 % (11.5-14.5)
[2016-12-12 04:48] LABS: CALCIUM, TOTAL 7.2 mg/dL (8.8-10.5); CREATININE 1.35 mg/dL (0.60-1.30); POTASSIUM 5.3 mmol/L (3.5-5.1)
[2016-12-12 05:01] LABS: HEMOGLOBIN 6.9 g/dL (12.0-16.0)
[2016-12-12] MEDS ORDERED: FUROSEMIDE 20 MG/2 ML VIAL IVP ONE ×2 (05:15)
[2016-12-12] MEDS ORDERED: ACETAMINOPHEN 325 MG TABLET PO ONE (05:15)
[2016-12-12] MEDS ORDERED: DiphenhydrAMINE HCL 50 MG/ML VIAL IVP ONE (05:15)
[2016-12-12] MEDS ORDERED: SODIUM CHLORIDE 0.9% 500 ML IV ONE (05:21)
[2016-12-12 05:33] LABS: BAND NEUTROPHILS % (MANUAL) 8 % (1-5); CORRECTED WHITE BLOOD COUNT 16.3 K/uL (4.5-11.0); EOSINOPHILS % (MANUAL) 1 % (1-6); LYMPHOCYTES % (MANUAL) 8 % (22-44); METAMYELOCYTES % 2 % (0-0); MYELOCYTES % 1 % (0-0); RBC MORPHOLOGY COMMENT DIMORPHIC RBC; TOTAL CELLS COUNTED 100; WHITE BLOOD COUNT (AUTO) 16.3 K/uL (4.5-11.0)
[2016-12-12] MEDS: PANTOPRAZOLE SODIUM 40 MG DR TABLET PO SCH (07:58)
[2016-12-12] MEDS: APIXABAN 5 MG TABLET PO SCH ×2 (07:58→21:24)
[2016-12-12] MEDS: LORazepam 1 MG TABLET PO SCH ×4 (07:58→21:24)
[2016-12-12] MEDS: DOCUSATE SODIUM 100 MG CAPSULE PO SCH ×2 (07:59→21:24)
[2016-12-12] MEDS: PRENATAL VIT#96/FERROUS FUM/FA TABLET PO SCH (07:59)
[2016-12-12] MEDS: MORPHINE SULFATE 2 MG/ML SYRINGE IVP PRN ×3 (08:03→14:30)
[2016-12-12] MEDS: BISACODYL 10 MG RECTAL RECTAL SUPPOSITORY PR PRN (21:58)
[2016-12-13] VITALS (11 sets, daily range): BP systolic 91–109; BP diastolic 48–65
[2016-12-13] MEDS: OxyCODONE HCL/ACETAMINOPHEN 5-325 MG TABLET PO PRN ×5 (02:33→20:32)
[2016-12-13 05:12] LABS: CALCIUM, TOTAL 7.6 mg/dL (8.8-10.5); CREATININE 1.34 mg/dL (0.60-1.30); POTASSIUM 5.6 mmol/L (3.5-5.1)
[2016-12-13 05:48] LABS: HEMATOCRIT 29.3 % (36-46); HEMOGLOBIN 9.5 g/dL (12.0-16.0); MEAN CORPUSCULAR HEMOGLOBIN 30.3 pg (26.0-34.0); MEAN CORPUSCULAR HGB CONC 32.3 G/dL (31.0-37.0); MEAN CORPUSCULAR VOLUME 94 fL (80-100); PLATELET COUNT (AUTO) 138 K/uL (150-450); RED BLOOD CELL COUNT(AUTO) 3.13 MIL/uL (4.00-5.20); RED CELL DISTRIBUTION WIDTH 19.7 % (11.5-14.5)
[2016-12-13] MEDS: PRENATAL VIT#96/FERROUS FUM/FA TABLET PO SCH (08:28)
[2016-12-13] MEDS: PANTOPRAZOLE SODIUM 40 MG DR TABLET PO SCH (08:28)
[2016-12-13] MEDS: LORazepam 1 MG TABLET PO SCH ×4 (08:28→20:32)
[2016-12-13] MEDS: DOCUSATE SODIUM 100 MG CAPSULE PO SCH ×2 (08:28→20:32)
[2016-12-13] MEDS ORDERED: APIXABAN 5 MG TABLET PO SCH (09:00)
[2016-12-13] MEDS ORDERED: DEXTROSE 5% IV ONE ×2 (09:00→18:15)
[2016-12-13] MEDS ORDERED: WATER IV ONE ×2 (09:00→18:15)
[2016-12-13] MEDS ORDERED: ACETYLCYSTEINE IV ONE ×2 (09:00→18:15)
[2016-12-13 09:20] LABS: BAND NEUTROPHILS % (MANUAL) 12 % (1-5); CORRECTED WHITE BLOOD COUNT 18.3 K/uL (4.5-11.0); LYMPHOCYTES % (MANUAL) 7 % (22-44); METAMYELOCYTES % 4 % (0-0); MYELOCYTES % 1 % (0-0); TOTAL CELLS COUNTED 100
[2016-12-13 09:21] LABS: RBC MORPHOLOGY COMMENT DIMORPHIC; WHITE BLOOD COUNT (AUTO) 18.3 K/uL (4.5-11.0)
[2016-12-13] MEDS: APIXABAN 5 MG TABLET PO SCH ×2 (09:44→20:32)
[2016-12-13] MEDS: CeFAZolin 1 GM/DEXTROSE 50 ML IV SCH ×2 (12:30→16:47)
[2016-12-13] MEDS: MINERAL OIL 30 ML UDCUP PO PRN (12:48)
[2016-12-14] MEDS: CeFAZolin 1 GM/DEXTROSE 50 ML IV SCH (02:10)
[2016-12-14] MEDS: OxyCODONE HCL/ACETAMINOPHEN 5-325 MG TABLET PO PRN (05:42)
[2016-12-14 06:41] VITALS: BP 101/57
[2016-12-14 07:12] VITALS: BP 79/43
[2016-12-14] MEDS: DOCUSATE SODIUM 100 MG CAPSULE PO SCH ×2 (09:11→20:32)
[2016-12-14] MEDS: PRENATAL VIT#96/FERROUS FUM/FA TABLET PO SCH (09:12)
[2016-12-14] MEDS: PANTOPRAZOLE SODIUM 40 MG DR TABLET PO SCH (09:12)
[2016-12-14] MEDS: APIXABAN 5 MG TABLET PO SCH ×2 (09:12→20:33)
[2016-12-14] MEDS: LORazepam 1 MG TABLET PO SCH ×4 (09:12→20:32)
[2016-12-14 09:39] LABS: INR 1.9 (0.9-1.1); PROTHROMBIN TIME 20.1 SEC (9.4-11.6)
[2016-12-14 11:40] VITALS: BP 98/52
[2016-12-14] MEDS ORDERED: SODIUM POLYSTYRENE SULFONATE 15 GM/60 ML SUSPENSION BOTTLE PO ONE (12:30)
[2016-12-14] MEDS: MINERAL OIL 30 ML UDCUP PO PRN (13:48)
[2016-12-14 15:10] VITALS: BP 101/55
[2016-12-14 19:48] VITALS: BP 82/50
[2016-12-15] VITALS (7 sets, daily range): BP systolic 96–106; BP diastolic 54–85
[2016-12-15] MEDS: LORazepam 1 MG TABLET PO SCH ×4 (09:00→21:21)
[2016-12-15] MEDS: PANTOPRAZOLE SODIUM 40 MG DR TABLET PO SCH (09:18)
[2016-12-15] MEDS: PRENATAL VIT#96/FERROUS FUM/FA TABLET PO SCH (09:18)
[2016-12-15] MEDS: APIXABAN 5 MG TABLET PO SCH ×2 (09:18→21:21)
[2016-12-15] MEDS: DOCUSATE SODIUM 100 MG CAPSULE PO SCH ×2 (09:18→21:22)
[2016-12-15] MEDS ORDERED: LIDOCAINE HCL/PF 1% 30 ML VIAL ONE (12:22)
[2016-12-15] MEDS: HYDROCODONE/ACETAMINOPHEN 5-325 MG TABLET PO PRN ×2 (13:51→21:26)
[2016-12-15] MEDS: ONDANSETRON HCL 4 MG/2 ML VIAL IVP PRN (13:58)
[2016-12-15] MEDS: ALTEPLASE 8 MG in SODIUM CHLORIDE 0.9% 250 ML IV SCH ×7 (14:02→23:21)
[2016-12-15] MEDS: MORPHINE SULFATE 2 MG/ML SYRINGE IVP PRN ×2 (17:05→17:20)
[2016-12-16] VITALS (7 sets, daily range): BP systolic 93–107; BP diastolic 59–68
[2016-12-16] MEDS: ALTEPLASE 8 MG in SODIUM CHLORIDE 0.9% 250 ML IV SCH ×3 (03:30→07:37)
[2016-12-16 05:12] LABS: CALCIUM, TOTAL 7.7 mg/dL (8.8-10.5); CREATININE 1.67 mg/dL (0.60-1.30); POTASSIUM 5.8 mmol/L (3.5-5.1)
[2016-12-16 07:11] LABS: HEMATOCRIT 28.3 % (36-46); HEMOGLOBIN 9.3 g/dL (12.0-16.0); MEAN CORPUSCULAR HGB CONC 32.8 G/dL (31.0-37.0); MEAN CORPUSCULAR VOLUME 92 fL (80-100); PLATELET COUNT (AUTO) 141 K/uL (150-450); RED CELL DISTRIBUTION WIDTH 19.6 % (11.5-14.5)
[2016-12-16 07:16] LABS: WHITE BLOOD COUNT (AUTO) 37.5 K/uL (4.5-11.0)
[2016-12-16] MEDS ORDERED: SODIUM POLYSTYRENE SULFONATE 15 GM/60 ML SUSPENSION BOTTLE PO ONE (08:30)
[2016-12-16] MEDS: PRENATAL VIT#96/FERROUS FUM/FA TABLET PO SCH (08:42)
[2016-12-16] MEDS: LORazepam 1 MG TABLET PO SCH (08:42)
[2016-12-16] MEDS: HYDROCODONE/ACETAMINOPHEN 5-325 MG TABLET PO PRN (08:42)
[2016-12-16] MEDS: PANTOPRAZOLE SODIUM 40 MG DR TABLET PO SCH (08:42)
[2016-12-16] MEDS: DOCUSATE SODIUM 100 MG CAPSULE PO SCH (08:42)
[2016-12-16] MEDS: APIXABAN 5 MG TABLET PO SCH (08:42)
[2016-12-16 09:01] LABS: BAND NEUTROPHILS % (MANUAL) 36 % (1-5); LYMPHOCYTES % (MANUAL) 1 % (22-44); METAMYELOCYTES % 10 % (0-0); MYELOCYTES % 8 % (0-0); RBC MORPHOLOGY COMMENT DIMORPHIC RBC; TOTAL CELLS COUNTED 100
[2016-12-16] MEDS: ONDANSETRON HCL 4 MG/2 ML VIAL IVP PRN (09:08)
[2016-12-16] MEDS ORDERED: LORA-192 PO (10:26)
[2016-12-16] MEDS ORDERED: LORA1TAB3 PO ×2 (10:27→10:32)
[2016-12-16] MEDS: MORPHINE SULFATE 2 MG/ML SYRINGE IVP PRN (11:02)
[2016-12-16] MEDS ORDERED: OXYC-31 PO (14:40)
[2016-12-16] MEDS ORDERED: APIX2.5T PO (14:42)
== END 2016-12-16 11:55 | disposition hospice, home (50) | DRG 163 ==
LOC: SURGERY 05:47 → ICU 05:48 → EDSTATUS 07:30 → ICU 14:15 → UNDOADMIN 14:15 → 5S 12-13 10:20 → ICU 12-15 15:50
PROVIDERS: ADMIT Internal Medicine; ATTEND Internal Medicine
PROC: 3E03317 Introduction of Other Thrombolytic into Peripheral Vein, Percutaneous Approach (ICD-10-PCS; principal; 2016-12-01)
PROC: 3E03317 Introduction of Other Thrombolytic into Peripheral Vein, Percutaneous Approach (ICD-10-PCS; 2016-12-01)
PROC: 3E05317 Introduction of Other Thrombolytic into Peripheral Artery, Percutaneous Approach (ICD-10-PCS; 2016-12-01)
PROC: B5191ZA Fluoroscopy of Inferior Vena Cava using Low Osmolar Contrast, Guidance (ICD-10-PCS; 2016-12-01)
PROC: B51H1ZA Fluoroscopy of Bilateral Pelvic (Iliac) Veins using Low Osmolar Contrast, Guidance (ICD-10-PCS; 2016-12-01)
PROC: B51D1ZA Fluoroscopy of Bilateral Lower Extremity Veins using Low Osmolar Contrast, Guidance (ICD-10-PCS; 2016-12-01)
PROC: 02CR3ZZ Extirpation of Matter from Left Pulmonary Artery, Percutaneous Approach (ICD-10-PCS; 2016-12-02)
PROC: B31T1ZZ Fluoroscopy of Left Pulmonary Artery using Low Osmolar Contrast (ICD-10-PCS; 2016-12-02)
PROC: B31S1ZZ Fluoroscopy of Right Pulmonary Artery using Low Osmolar Contrast (ICD-10-PCS; 2016-12-02)
PROC: 04CL3ZZ Extirpation of Matter from Left Femoral Artery, Percutaneous Approach (ICD-10-PCS; 2016-12-03)
PROC: 04CN3ZZ Extirpation of Matter from Left Popliteal Artery, Percutaneous Approach (ICD-10-PCS; 2016-12-03)
PROC: 0H5 Skin and Breast, Destruction (ICD-10-PCS; 2016-12-07)
PROC: 0H57XZZ Destruction of Abdomen Skin, External Approach (ICD-10-PCS; 2016-12-07)
PROC: 067 Lower Veins, Dilation (ICD-10-PCS; 2016-12-09)
PROC: 067 Lower Veins, Dilation (ICD-10-PCS; 2016-12-09)
PROC: 0H5 Skin and Breast, Destruction (ICD-10-PCS; 2016-12-09)
PROC: 0H57XZZ Destruction of Abdomen Skin, External Approach (ICD-10-PCS; 2016-12-09)
PROC: 3E03317 Introduction of Other Thrombolytic into Peripheral Vein, Percutaneous Approach (ICD-10-PCS; 2016-12-14)
DX: I26.99 Other pulmonary embolism without acute cor pulmonale (principal); E43 Unspecified severe protein-calorie malnutrition; G72.81 Critical illness myopathy; N17.9 Acute kidney failure, unspecified; I82.403 Acute embolism and thrombosis of unspecified deep veins of lower extremity, bilateral; C49.9 Malignant neoplasm of connective and soft tissue, unspecified; D68.59 Other primary thrombophilia; I87.1 Compression of vein; C78.00 Secondary malignant neoplasm of unspecified lung; C78.7 Secondary malignant neoplasm of liver and intrahepatic bile duct; C79.81 Secondary malignant neoplasm of breast; E87.0 Hyperosmolality and hypernatremia; C79.70 Secondary malignant neoplasm of unspecified adrenal gland; C79.71 Secondary malignant neoplasm of right adrenal gland; I82.412 Acute embolism and thrombosis of left femoral vein; Z79.899 Other long term (current) drug therapy; J45.909 Unspecified asthma, uncomplicated; Z82.3 Family history of stroke; Z88.6 Allergy status to analgesic agent; Z91.018 Allergy to other foods; Z91.048 Other nonmedicinal substance allergy status; Z82.49 Family history of ischemic heart disease and other diseases of the circulatory system; Z83.3 Family history of diabetes mellitus; Z87.891 Personal history of nicotine dependence; Z86.711 Personal history of pulmonary embolism; Z68.36 Body mass index [BMI] 36.0-36.9, adult; D64.9 Anemia, unspecified; Z51.5 Encounter for palliative care; D63.8 Anemia in other chronic diseases classified elsewhere; Z53.29 Procedure and treatment not carried out because of patient's decision for other reasons; D17.23 Benign lipomatous neoplasm of skin and subcutaneous tissue of right leg; D63.0 Anemia in neoplastic disease; F41.9 Anxiety disorder, unspecified
CPT/HCPCS: 19105; 36245; 36569; 47383; 71260; 72193; 74160; 74176; 75822; 75978; 76705; 76937; 80074; 82247; 82248; 84132; 85007; 86850; 86900; 86901; 86920; 87040; 87081; 93005; 93306; 93970; 97110; 97163; 97166; 97530; 97535; C2618; J0132; J0690; J0696; J1200; J1644; J1940; J2060; J2250; J2270; J2405; J2997; J3010; J3411; J3475; J3490; J7030; J7040; J7050; J7060; J7120; P9016; Q9967

== ENCOUNTER 2016-12-16 13:38 | Emergency (ER) | payer OTHER ==
[~2016-12-16] VITALS: Ht 167.6 cm; Wt 90.9 kg
[~2016-12-16 13:38] MED LIST changes: -CeFAZolin 1 GM/DEXTROSE 50 ML IV ONE; +LORA-192 PO; +LORA1TAB3 PO; -LORazepam 2 MG/ML VIAL IVP PRN; -SODIUM CHLORIDE 0.9% 1,000 ML IV ONE
[2016-12-16] MEDS ORDERED: OXYC-31 PO (14:40)
[2016-12-16] MEDS ORDERED: APIX2.5T PO (14:42)
[2016-12-16] MEDS ORDERED: NOREPINEPHRINE 4 MG/D5%-WATER 250 ML IV PRN (18:15)
[2016-12-16] MEDS ORDERED: SODIUM CHLORIDE 0.9% 500 ML IV ONE (18:16)
[2016-12-16] MEDS ORDERED: OxyCODONE HCL/ACETAMINOPHEN 10-325 MG TABLET PO ONE ×2 (19:30→23:00)
[2016-12-16] MEDS ORDERED: FentaNYL CITRATE PF 500 MCG in DEXTROSE 5%-WATER 90 ML IV PRN (19:45)
[2016-12-16] MEDS ORDERED: LORazepam 1 MG TABLET PO ONE ×2 (20:00→23:00)
[2016-12-16] MEDS ORDERED: SODIUM CHLORIDE 0.9% 250 ML IV ONE (20:00)
[2016-12-16] MEDS ORDERED: APIXABAN 2.5 MG TABLET PO ONE (20:00)
[2016-12-16] MEDS ORDERED: MORPHINE SULFATE 100 MG/NS/PF 100 ML IV PRN (20:30)
[2016-12-16 22:10] VITALS: BP 92/52
[2016-12-16] MEDS ORDERED: MORPHINE SULFATE 4 MG/ML SYRINGE IM ONE (22:45)
== END 2016-12-16 23:31 | disposition home or self-care (01) ==
LOC: EMS 13:39
DX: R60.1 Generalized edema (principal); C79.9 Secondary malignant neoplasm of unspecified site; R00.0 Tachycardia, unspecified; D72.829 Elevated white blood cell count, unspecified; Z86.711 Personal history of pulmonary embolism
CPT/HCPCS: 51702; 96360; 96361; 99285; J7040; J2270; J3010; J3490; J7060